=== PATIENT | female | born 1965 | race Caucasian/White ===

== ENCOUNTER → 2017-01-08 | Outpatient (CLI) | payer MEDICAID ==
--- NOTE | 2017-01-11 11:37 | MM ---
Reason for exam: screening (asymptomatic). Last mammogram was performed 1 year and 6 months ago. History: Benign core biopsy of the left breast, November 09, 2006. Took hormonal contraceptives for 15 years beginning at age 14. Physical Findings: A clinical breast exam by your physician is recommended on an annual basis and results should be correlated with mammographic findings. MG Screening Mammo w CAD Bilateral CC and MLO view(s) were taken. Prior study comparison: June 28, 2015, bilateral MG screening mammo w CAD. October 20, 2013, CAD bilateral diagnostic mammogram. June 01, 2012, bilateral digital screening mammo w/CAD. The breast tissue is heterogeneously dense. This may lower the sensitivity of mammography. Finding: There are a few typically benign round calcifications in both breasts. Previous mammotome biopsy in the left breast. There is no discrete abnormality. ASSESSMENT: Benign, BI-RAD 2 RECOMMENDATION: Routine screening mammogram of both breasts in 1 year.
== END | disposition home or self-care (01) ==
LOC: RADMAMWWP 09:32
PROVIDERS: ATTEND Family Medicine
DX: Z12.31 Encounter for screening mammogram for malignant neoplasm of breast (principal)

== ENCOUNTER 2017-02-19 10:25 | Day surgery (SDC) | payer MEDICAID ==
[2017-02-16 15:33] VITALS: BMI 30.5
[~2017-02-19 10:25] MED LIST: LACTATED RINGERS 1,000 ML IV SCH
[2017-02-19 10:43] VITALS: RESP 16; TEMP 96.5
[2017-02-19] MEDS ORDERED: LIDOCAINE 1% 20 ML VIAL (10MG/ML) FOR IV START INTRADERMA ONE (10:52)
--- NOTE | 2017-02-19 11:15 | P.GSHP ---
History of Present Illness H&P Date: 02/19/17 Chief Complaint: Screening colonoscopy 51 years old female presents for screening colonoscopy. Mother had colon cancer at age 62. No change in bowel habits. No rectal bleeding. Past Medical History Past Medical History: No Reported History History of Any Multi-Drug Resistant Organisms: None Reported Past Surgical History: Cholecystectomy Past Anesthesia/Blood Transfusion Reactions: No Reported Reaction Smoking Status: Never smoker - Past Family History Mother Family Medical History: Cancer Additional Family Medical History / Comment(s): COLON CANCER Medications and Allergies Home Medications Medication Instructions Recorded Confirmed Type Fish Oil/Dha/Epa [Fish Oil 1,200 1 each PO DAILY 02/16/17 02/16/17 History mg Fish Oil] PARoxetine [Paxil] 20 mg PO DAILY 02/16/17 02/16/17 History Allergies Allergy/AdvReac Type Severity Reaction Status Date / Time No Known Allergies Allergy Verified 02/16/17 15:25 Surgical - Exam Vital Signs Temp Pulse Resp BP Pulse Ox 96.5 F L 61 16 117/76 95 02/19/17 10:42 02/19/17 10:42 02/19/17 10:42 02/19/17 10:42 02/19/17 10:42 General: Patient is alert and oriented to time, place and person and cooperative with exam. HEENT: No pallor, no icterus, Chest: Bilateral equal breath sounds present. No wheezes, no crackles. Cardiovascular: Regular rate and rhythm. Abdomen: Soft, nontender, nondistended. Integumentary: No active ulcers or discharge. Neurologic: Cranial nerves II-XII intact. Strength upper and lower extremities 5/5. No focal neurologic deficits. Gait is normal. . Assessment and Plan (1) Screening for colorectal cancer Status: Acute Plan: 1. Informed consent obtained and patient elected to undergo colonoscopy with possible biopsy 2. The risks, benefits and potential complications including bleeding, infection and perforation were taken to the patient
[2017-02-19] MEDS ORDERED: PROPOFOL 10 MG/ML 20 ML VIAL IV ONE (12:13)
--- NOTE | 2017-02-19 12:15 | P.OP ---
Date of Procedure: 02/19/17 Preoperative Diagnosis: Family history of colon cancer in first-degree relative Postoperative Diagnosis: Procedure(s) Performed: Greening colonoscopy Implants: Anesthesia: MAC Surgeon: Patricia Whitlock Condition: stable Disposition: PACU Indications for Procedure: Operative Findings: Description of Procedure: The patient was brought to the endoscopy suite and placed in lateral decubitus position. IV sedation was given as per anesthesia team. Patient was on continuous vitals and pulse oximetry monitoring throughout the procedure. A timeout was performed to verify correct patient and correct procedure. Perianal examination did not show any external hemorrhoids. Digital rectal examination was performed. No masses or gross blood. A well-lubricated Olympus colonoscope was passed per rectally and was gradually advanced beyond the sigmoid colon, splenic flexure, transverse colon, hepatic flexure and cecum. The ileocecal valve was visualized as well as the appendiceal orifice . The colonoscope was gradually withdrawn inspecting all the mucosal surfaces. Bowel prep was good. No polyps, masses, AV malformations noted. Sigmoid diverticulosis noted without any evidence of acute diverticulitis. The scope was gradually withdrawn and retroflexed in the rectum . Grade 1 internal hemorrhoids seen. Total withdrawal time was greater than 6 minutes . Patient tolerated the procedure well and was taken to post anesthesia care unit in stable condition. Recommend repeat colonoscopy in 10 years . Pending pathology reports.
[2017-02-19 13:07] VITALS: BP 147/72; PULSE 62
== END 2017-02-19 13:13 | disposition home or self-care (01) ==
LOC: ORWHC2ENDO 10:25
PROVIDERS: ATTEND Surgery
DX: Z12.11 Encounter for screening for malignant neoplasm of colon (principal); K57.30 Diverticulosis of large intestine without perforation or abscess without bleeding; K64.0 First degree hemorrhoids; Z80.0 Family history of malignant neoplasm of digestive organs; Z79.899 Other long term (current) drug therapy
CPT/HCPCS: 81025; 88305; 45380; J2704

== ENCOUNTER → 2017-06-08 | Outpatient (CLI) | payer MEDICAID ==
--- NOTE | 2017-06-08 11:22 | XR ---
Right shoulder HISTORY: Right shoulder pain 3 views of the right shoulder Right lung apex as visualized is normal. Bone mineralization, joint spaces and alignment are maintain ed. No fracture or dislocation. No radiopaque foreign body evident. Acromioclavicular joint arthropat hy changes are present. IMPRESSION: No significant abnormalities evident. MRI may be of benefit.
== END | disposition home or self-care (01) ==
LOC: RADXRMAIN 08:41
PROVIDERS: ATTEND Family Medicine
DX: M25.511 Pain in right shoulder (principal)

== ENCOUNTER → 2018-04-06 | Outpatient (CLI) | payer MEDICAID, OTHER ==
--- NOTE | 2018-04-06 13:07 | MR ---
EXAMINATION TYPE: MR shoulder RT wo con DATE OF EXAM: 04/06/2018 COMPARISON: 06/23/2017 HISTORY: Right shoulder pain TECHNIQUE: Multiplanar, multisequence imaging of the right shoulder is performed without contrast. FINDINGS: Rotator Cuff: Fluid is within the subacromial bursa and subdeltoid bursa. Some signal transverses the anterior aspect of the supraspinatus tendon distally subscapularis and anterior supraspinatus tendon tear is present. No tendon retraction is evident. Supraspinatus muscle may be mildly atrophied and s mall although signal is similar to additional rotator cuff muscles. Tear is approximately 1.1 cm in s ize. Acromioclavicular Joint: Mild hypertrophy. Significant downward spurring however is not identified. N ote is made of fluid within the subacromial bursa and subdeltoid bursa. Glenohumeral Joint: Humeral head articulates with the glenoid. Articular surfaces appear thin. Labrum: The labrum appears grossly intact although small given limitation of non-arthrogram study. Biceps Tendon: Abundant fluid surrounds the long head of the biceps tendon. Moderate tendinosis shoul d be considered. Bone marrow signal: No focal abnormal marrow signal is appreciated. Other: No additional significant abnormality is appreciated. IMPRESSION: 1. Interval Rotator cuff tendon tear of the anterior distal supraspinatus tendon and a portion of the subscapularis tendon at the junction of approximately 1.1 cm in width. 2. Small joint effusion, similar to prior. 3. Moderate tendinosis long head biceps tendon
== END | disposition home or self-care (01) ==
LOC: RADMRIMAIN 06:07
PROVIDERS: ATTEND Orthopaedic Surgery
DX: S46.011A Strain of muscle(s) and tendon(s) of the rotator cuff of right shoulder, initial encounter (principal); M75.21 Bicipital tendinitis, right shoulder

== ENCOUNTER → 2019-02-06 | Outpatient (CLI) | payer MEDICAID ==
[2019-02-06 07:23] LABS: Basophils % (A) 0 %; Eosinophils # (A) 0.2 k/uL (0-0.7); Eosinophils % (A) 3 %; HCT 40.1 % (34.0-46.0); HGB 13.1 gm/dL (11.4-16.0); Lymphocytes # (A) 1.9 k/uL (1.0-4.8); Lymphocytes % (A) 35 %; MCH 30.8 pg (25.0-35.0); MCHC 32.6 g/dL (31.0-37.0); MCV 94.5 fL (80.0-100.0); Mean Platelet Volume 7.2; Monocytes # (A) 0.3 k/uL (0-1.0); Monocytes % (A) 6 %; Neutrophils # (A) 2.7 k/uL (1.3-7.7); Neutrophils % (A) 52 %; Platelet Count 274 k/uL (150-450); RBC 4.25 m/uL (3.80-5.40); RDW 14.3 % (11.5-15.5); WBC 5.3 k/uL (3.8-10.6)
[2019-02-06 10:44] LABS: African American GFR (CKD) 113.8 (60.0-200.0); Albumin 4.1 g/dL (3.80-4.90); Albumin/Globulin Ratio 1.95 (1.60-3.17); Anion Gap 4.2 mmol/L (4.00-12.00); BUN/Creat Ratio 21.43 Ratio (12.00-20.00); Calcium 9.2 mg/dL (8.7-10.3); Carbon Dioxide 26.8 mmol/L (21.6-31.8); Globulin 2.1 g/dL (1.6-3.3); Potassium 4.6 mmol/L (3.5-5.5); Total Bilirubin 0.5 mg/dL (0.3-1.2); Total Protein 6.2 g/dL (6.2-8.2)
[2019-02-06 10:56] LABS: T4, Free (Free Thyroxine) 0.9 ng/dL (0.80-1.80)
== END | disposition home or self-care (01) ==
LOC: LABWHC1 07:04
PROVIDERS: ATTEND Physician Assistant
DX: Z00.00 Encounter for general adult medical examination without abnormal findings (principal); Z11.59 Encounter for screening for other viral diseases; E04.9 Nontoxic goiter, unspecified
CPT/HCPCS: 36415; 80053; 80061; 84439; 84443; 85025; 86803

== ENCOUNTER → 2021-07-14 | Outpatient (CLI) | payer MEDICAID ==
--- NOTE | 2021-07-16 09:55 | MM ---
Reason for exam: screening (asymptomatic). Last mammogram was performed 4 years and 6 months ago. History: Benign core biopsy of the left breast, November 09, 2006. Took hormonal contraceptives for 15 years beginning at age 14. Physical Findings: A clinical breast exam by your physician is recommended on an annual basis and results should be correlated with mammographic findings. MG 3D Screening Mammo W/Cad Bilateral CC and MLO view(s) were taken. Prior study comparison: January 08, 2017, bilateral MG screening mammo w CAD. June 28, 2015, bilateral MG screening mammo w CAD. The breast tissue is heterogeneously dense. This may lower the sensitivity of mammography. Benign appearing bilateral calcifications. Previous mammotome biopsy in the left breast. ASSESSMENT: Benign, BI-RAD 2 RECOMMENDATION: Routine screening mammogram of both breasts in 1 year.
== END | disposition home or self-care (01) ==
LOC: RADMAMWWP 10:44
PROVIDERS: ATTEND Family Medicine
DX: Z12.31 Encounter for screening mammogram for malignant neoplasm of breast (principal)
CPT/HCPCS: 77063; 77067

== ENCOUNTER → 2022-02-19 | Outpatient (CLI) | payer MEDICAID ==
--- NOTE | 2022-02-19 11:37 | XR ---
EXAMINATION TYPE: XR abdomen 1V DATE OF EXAM: 02/19/2022 COMPARISON: NONE HISTORY: None TECHNIQUE: One view abdominal series FINDINGS: The osseous structures are intact. The bowel gas pattern is nonspecific. Degenerative change lower l umbar spine. Calcifications in the pelvis are likely vascular. Retained fecal debris throughout the l eft colon. Surgical clips in the gallbladder fossa. IMPRESSION: 1. Nonspecific abdomen
== END | disposition home or self-care (01) ==
LOC: RADXRMAIN 10:52
PROVIDERS: ATTEND Family Medicine
DX: R10.9 Unspecified abdominal pain (principal)
CPT/HCPCS: 74018

== ENCOUNTER 2022-07-30 08:28 | Day surgery (SDC) | payer MEDICAID ==
[2022-07-28 11:50] VITALS: BMI 32.9
--- NOTE | 2022-07-30 08:02 | P.GSHP ---
History of Present Illness H&P Date: 07/30/22 CHIEF COMPLAINT: Colon screen HISTORY OF PRESENT ILLNESS: The patient is a 56-year-old female who presents for colon screen. Lower endoscopy was offered for further evaluation and management. PAST MEDICAL HISTORY: Please see list. PAST SURGICAL HISTORY: Please see list. MEDICATIONS: Please see list. ALLERGIES: Please see list. SOCIAL HISTORY: No illicit drug use FAMILY HISTORY: No reports of Crohn disease or ulcerative colitis. REVIEW OF ORGAN SYSTEMS: CONSTITUTIONAL: No reports of fevers or chills. PHYSICAL EXAM: VITAL SIGNS: Stable GENERAL: Well-developed pleasant in no acute distress. HEENT: No scleral icterus. Extraocular movements grossly intact. Moist buccal mucosa. NECK: Supple without lymphadenopathy. CHEST: Unlabored respirations. Equal bilateral excursions. CARDIOVASCULAR: Regular rate and rhythm. Distal 2+ pulses. ABDOMEN: Soft, nontender, nondistended. MUSCULOSKELETAL: No clubbing, cyanosis, or edema. ASSESSMENT: 1. Colon screen. PLAN: 1. Recommend proceeding with a lower endoscopy Past Medical History Past Medical History: No Reported History History of Any Multi-Drug Resistant Organisms: None Reported Past Surgical History: Cholecystectomy Past Anesthesia/Blood Transfusion Reactions: No Reported Reaction Past Psychological History: No Psychological Hx Reported Smoking Status: Never smoker Past Alcohol Use History: Rare Past Drug Use History: None Reported - Past Family History Mother Family Medical History: Cancer Additional Family Medical History / Comment(s): COLON CANCER. Brother(s) Family Medical History: Cancer Medications and Allergies Home Medications Medication Instructions Recorded Confirmed Type PARoxetine [Paxil] 20 mg PO QAM 02/16/17 07/28/22 History Prempro (Unknown Dose) 1 tab PO DAILY 07/28/22 07/28/22 History Rosuvastatin [Crestor] 10 mg PO DAILY 07/28/22 07/28/22 History Allergies Allergy/AdvReac Type Severity Reaction Status Date / Time No Known Allergies Allergy Verified 07/28/22 11:41
[~2022-07-30 08:28] MED LIST changes: +LIDOCAINE 1% (10MG/ML) FOR IV START INTRADERMA PRN
[2022-07-30] MEDS ORDERED: LACTATED RINGERS 1,000 ML IV ONE ×2 (09:25)
[2022-07-30 09:28] VITALS: RESP 16; TEMP 97.9
[2022-07-30] MEDS ORDERED: PROPOFOL 10 MG/ML 20 ML VIAL IV ONE (10:09)
[2022-07-30] MEDS ORDERED: LIDOCAINE 2% INJ 20 MG/ML (2 ML VIAL) ONE (10:09)
[2022-07-30 10:52] VITALS: BP 120/81; PULSE 75
--- NOTE | 2022-07-31 22:49 | P.PCN ---
Date of Procedure: 07/30/22 Description of Procedure: PREOPERATIVE DIAGNOSIS: Colonoscopy screening. Family history colon cancer POSTOPERATIVE DIAGNOSIS: Colonoscopy screening. Family history colon cancer Diverticulosis, scattered. Arteriovenous malformation OPERATION: Colonoscopy to the cecum, ileocecal valve and appendiceal orifice. SURGEON: Stephanie Varma MD. ANESTHESIA: MAC. INDICATIONS: The patient is a 58-year-old female who presents for colonoscopy screening. His family history of colon cancer, first-degree. Benefits and risks were described and informed consent was obtained. DESCRIPTION OF PROCEDURE: The patient had undergone Sutab prep. The patient had been brought into the operating room and laid in the left lateral decubitus position. After adequate intravenous sedation, the rectum was examined with 2% lidocaine jelly. External hemorrhoids were encountered. The rectal tone was within normal limits. No lesions were palpated in the rectal vault. An Olympus colonoscope was advanced until the cecum, ileocecal valve and appendiceal orifice were clearly viewed. The prep was good. Scattered diverticulosis was encountered. No colonic polyps were found. No evidence of focal colitis was found. Retroflexion of the scope demonstrated grade 2 internal hemorrhoids without active bleeding or inflammati on. The colon was desufflated. The patient had tolerated the procedure well. Withdrawal time was over 6 minutes. FINDINGS: Aronchick preparation quality scale 2 (1-5) Internal hemorrhoids, grade 2 External prolapsed hemorrhoids. Arteriovenous malformations, 1 mm x 3 sigmoid colon No adenomatous polyps. No focal colitis. RECOMMENDATIONS: Lower endoscopy in 5 years, 2026 due to high-risk history Plan - Discharge Summary Discharge Rx Participant: No New Discharge Prescriptions: No Action PARoxetine [Paxil] 20 mg PO QAM Prempro (Unknown Dose) 1 tab PO DAILY Rosuvastatin [Crestor] 10 mg PO DAILY Discharge Medication List PARoxetine [Paxil] 20 mg PO QAM 02/16/17 [History] Prempro (Unknown Dose) 1 tab PO DAILY 07/28/22 [History] Rosuvastatin [Crestor] 10 mg PO DAILY 07/28/22 [History] Patient Instructions/Handouts: *[facility] - (Anesthesia) Endoscopy Discharge Instructions Discharge Disposition: HOME SELF-CARE
== END 2022-07-30 11:58 | disposition home or self-care (01) ==
LOC: ORWHC2ENDO 08:28
PROVIDERS: ATTEND Surgery Plastic and Reconstructive Surgery
DX: Z12.11 Encounter for screening for malignant neoplasm of colon (principal); K57.30 Diverticulosis of large intestine without perforation or abscess without bleeding; Z80.0 Family history of malignant neoplasm of digestive organs
CPT/HCPCS: 45378; J2704; J2001

== ENCOUNTER → 2023-05-07 | Outpatient (CLI) | payer MEDICAID ==
--- NOTE | 2023-05-10 07:40 | MM ---
Reason for Exam: Screening (asymptomatic). Last mammogram was performed 1 year(s) and 10 month(s) ago. Patient History: Menarche at age 11. First Full-Term at age 28. Postmenopausal. Hormonal Contraceptives for 15 years from age 14 until age 29. 11/09/2006, Benign Core Biopsy on the left side. Risk Values: Lashawn 5 year model risk: 1.8%. NCI Lifetime model risk: 10.0%. Prior Study Comparison: 06/28/2015 Bilateral Screening Mammogram, [facility]. 01/08/2017 Bilateral Screening Mammogram, [facility]. 07/14/2021 Bilateral Screening Mammogram, [facility]. Tissue Density: The breast tissue is heterogeneously dense. This may lower the sensitivity of mammography. Findings: Analyzed By CAD. There is no suspicious group of microcalcifications or new suspicious mass in either breast. Overall Assessment: Benign, BI-RAD 2 Management: Screening Mammogram of both breasts in 1 year. . Patient should continue monthly self-breast exams. A clinical breast exam by your physician is recommended on an annual basis. This exam should not preclude additional follow-up of suspicious palpable abnormalities. Note on Lashawn scores and lifetime risk: 1. A Lashawn score greater than 3% is considered moderate risk. If this is the case, consider specialist referral to assess eligibility for a risk reducing agent. 2. If overall lifetime risk for the development of breast cancer is 20% or higher, the patient may qualify for future screening with alternating mammogram and breast MRI. Electronically signed and approved by: Armando Steel M.D. Radiologis
== END | disposition home or self-care (01) ==
LOC: RADMAMWWP 14:15
PROVIDERS: ATTEND Family Medicine
DX: Z12.31 Encounter for screening mammogram for malignant neoplasm of breast (principal); Z78.0 Asymptomatic menopausal state
CPT/HCPCS: 77063; 77067

== ENCOUNTER → 2024-04-18 | Outpatient (CLI) | payer MEDICAID ==
--- NOTE | 2024-05-15 07:58 | CT ---
Patient: Taylor Cano Ordering Physician: Unknown, Unknown ID: [id number] Phone, Pager: Phone: N/A Pager: N/A : 1965 Age/Gender: 58Y, F Primary Location: N/A Procedure: CT abdomen pelvis wo con Study Date: 04/18/2024 11:37:00 AM EXAMINATION TYPE: CT abdomen pelvis w con DATE OF EXAM: 04/18/2024 COMPARISON: No comparison available on downtime PACS. INDICATION: Abdomen pain DLP: 897.8 mGycm, Automated exposure control for dose reduction was used. CONTRAST: 0 mL of Isovue 300. Study performed with Oral Contrast TECHNIQUE: Axial images were obtained from above the diaphragm to the pubic rami in the axial plane a t 5 mm thick sections. Reconstructed images are reviewed on the computer in the coronal plane. FINDINGS: Limited CT sections are obtained the lung bases. There is a 0.9 cm focal infiltrate in the lingula a t the lung base. Underlying mass is not excluded. Follow-up is recommended. Lung bases within the fie ld-of-view are otherwise clear.. CT ABDOMEN: Liver: Normal Spleen: Normal Pancreas: Normal Adrenal glands: The adrenal glands are normal. Gallbladder: Surgically absent Kidneys: No masses are evident. No hydronephrosis is present. No cysts are present. No renal or ur eteral stones evident. Aorta: Vascular calcification is within the aorta. Inferior vena cava: Normal. CT PELVIS: Loops of bowel within the abdomen and pelvis are normal. There are loops of bowel which are incom pletely distended or lack oral contrast limiting their evaluation. Appendix: Not identified. No dilated tubular structure or inflammatory changes evident. Urinary bladder: Normal. Genitourinary structures: Uterus is bulky. Adnexa are normal. Osseous structures: No suspicious lytic or sclerotic lesions. Facet degenerative changes are present bilaterally. IMPRESSION: 1. Small infiltrate lingular base. Follow-up recommended. 2. No suspicious abdomen abnormality to account for abdominal pain.
== END | disposition home or self-care (01) ==
LOC: RADCTMAIN 09:00
PROVIDERS: ATTEND Family Medicine
DX: R10.9 Unspecified abdominal pain (principal)
CPT/HCPCS: 74176

== ENCOUNTER → 2024-06-07 | Outpatient (CLI) | payer MEDICAID ==
--- NOTE | 2024-06-07 12:36 | CT ---
EXAMINATION TYPE: CT chest w con CT DLP: 659 mGycm, Automated exposure control for dose reduction was used. DATE OF EXAM: 06/07/2024 12:25 PM COMPARISON: CT abdomen and pelvis 05/15/2024 CLINICAL INDICATION:Female, 58 years old with history of ABN FIDINGS OF LUNG FIELD R91.8; PHH, Abnorm al findings lung mcfadden TECHNIQUE: Multiple axial images were obtained through the chest following the administration of 100 cc of Isovue 300. . Coronal and sagittal reformats reviewed. FINDINGS: LUNGS/ PLEURA: No pleural effusion or pneumothorax. Right midlung 5 mm pulmonary nodule (series 4, im age 31). Right middle lobe 3.5 mm pulmonary nodule (series 4, image 36). Re-demonstration of left lo wer lobe 3.6 mm pulmonary nodule (series 4, image 50). More linear appearance of lingular opacity mos t consistent with scarring and/or atelectasis. AIRWAY: Patent and unremarkable.. HEART: Size within normal limits. No pericardial effusion. MEDIASTINUM: No evidence of adenopathy. VASCULATURE: No aortic aneurysm. MUSCULOSKELETAL: No acute osseous abnormalities SOFT TISSUES/LYMPH NODES: Unremarkable. LOWER NECK: Right thyroid lobe 1.5 cm hypodense nodule. UPPER ABDOMEN: Diffuse low-attenuation to the liver parenchyma. Gallbladder is surgically absent. IMPRESSION: 1. More linear appearance of lingular opacity most consistent with scarring and/or atelectasis. 2. Few pulmonary nodules measuring 5 mm or less. In a low risk patient, no follow-up is recommended. In a high-risk patient consider optional CT chest in 12 months. 3. Right thyroid lobe 1.5 cm nodule. Consider further evaluation with thyroid ultrasound. [facility], , 06/07/2024 12:33 PM
== END | disposition home or self-care (01) ==
LOC: RADCTMAIN 11:53
PROVIDERS: ATTEND Family Medicine
DX: R91.8 Other nonspecific abnormal finding of lung field (principal)
CPT/HCPCS: 71260

== ENCOUNTER → 2024-09-06 | Outpatient (CLI) | payer MEDICAID | END | disposition home or self-care (01) | LOC: LABWHC1 12:00 | PROVIDERS: ATTEND Family Medicine | DX: M25.50 Pain in unspecified joint (principal) | CPT/HCPCS: 36415; 85652; 86431 ==

== ENCOUNTER → 2024-09-21 | Outpatient (CLI) | payer MEDICAID ==
--- NOTE | 2024-09-21 11:41 | US ---
EXAMINATION TYPE: US pelvis complete transvag DATE OF EXAM: 09/21/2024 COMPARISON: CT CLINICAL INDICATION: Female, 58 years old with history of Z78.0 ASYMPTOMATIC MENOPAU; Pt states episo de of light vaginal bleeding x 1 week, 1 month ago, not on HRT's, no h/o ablation TECHNIQUE: Transvaginal (TV). Transabdominal grayscale sonographic images of the pelvis were acquired. Transvaginal sonographic im ages were medically necessary to better assess the following anatomy: TV ordered by physician Doppler imaging: Not performed. FINDINGS: Date of LMP: 4 years ago EXAM MEASUREMENTS: Uterus: 9.0 x 4.5 x 6.5 cm Endometrial Stripe: Not well delineated, read below Right Ovary: Not visualized due to bowel gas. Left Ovary: 1.7 x 1.1 x 1.0 cm 1. Uterus: Retroverted Ill-defined hypoechoic, heterogeneous area within uterus- ?abnormal endometri um vs. abnormal uterine tissue= 6.1 x 3.2 cm 2. Endometrium: Possible endo thickness= 0.5 cm, posterior to irregular, hypoechoic area 3. Right Ovary: Obscured by overlying bowel gas 4. Left Ovary: wnl 5. Bilateral Adnexa: wnl 6. Posterior cul-de-sac: wnl IMPRESSION: Heterogenous uterus/endometrium with increased vascularity. Correlate for signs and symptoms of infec tion such as endometritis. [facility], , 09/21/2024 11:39 AM
--- NOTE | 2024-09-21 12:16 | MM ---
Reason for Exam: Screening (asymptomatic). Last mammogram was performed 1 year(s) and 4 month(s) ago. Patient History: Menarche at age 11. First Full-Term at age 28. Postmenopausal. Hormonal Contraceptives for 15 years from age 14 until age 29. 11/09/2006, Benign Core Biopsy on the left side. Risk Values: Lashawn 5 year model risk: 1.8%. NCI Lifetime model risk: 9.8%. Prior Study Comparison: 01/08/2017 Bilateral Screening Mammogram, [facility]. 07/14/2021 Bilateral Screening Mammogram, [facility]. 05/07/2023 Bilateral MG 3D screening mammo w/cad, [facility]. Tissue Density: The breasts are heterogeneously dense, which may obscure small masses. Findings: Analyzed By CAD. Chronic nodularity medial right breast, unchanged from 2022. Benign fat necrosis calcification redemonstrated lateral right breast. Microclip upper outer quadrant left breast from prior biopsy. There is no suspicious group of microcalcifications or new suspicious mass in either breast. Overall Assessment: Benign, BI-RAD 2 Management: Screening Mammogram of both breasts in 1 year. . Patient should continue monthly self-breast exams. A clinical breast exam by your physician is recommended on an annual basis. This exam should not preclude additional follow-up of suspicious palpable abnormalities. Note on Lashawn scores and lifetime risk: 1. A Lashawn score greater than 3% is considered moderate risk. If this is the case, consider specialist referral to assess eligibility for a risk reducing agent. 2. If overall lifetime risk for the development of breast cancer is 20% or higher, the patient may qualify for future screening with alternating mammogram and breast MRI. [facility], , 09/21/2024 12:13 PM. Electronically signed and approved by: Marcos Multani M.D. Radiologist
== END | disposition home or self-care (01) ==
LOC: RADUSWWP 10:22
PROVIDERS: ATTEND Family Medicine
DX: Z12.31 Encounter for screening mammogram for malignant neoplasm of breast (principal); Z78.0 Asymptomatic menopausal state; N71.9 Inflammatory disease of uterus, unspecified; R92.333 Mammographic heterogeneous density, bilateral breasts; Z98.82 Breast implant status
CPT/HCPCS: 76830; 76856; 77063; 77067